=== PATIENT | female | born 1935 | race African-American/Black ===

== ENCOUNTER 2016-10-07 07:12 | Day surgery (SDC) | payer MEDICARE ==
[~2016-10-07] VITALS: Ht 154.9 cm; Wt 60.1 kg
[~2016-10-07 07:12] MED LIST: FLUO20CA38 PO; FURO20TA3 PO; HYDR-2059 PO; LAMO200T PO; LANS30CA PO; LEVO125T71 PO; LOSA100T7 PO; METO-448 PO; RANI300T3 PO; SOLI10TA5 PO; SUCR1TAB27 PO
[2016-10-07 07:50] VITALS: Ht 154.9 cm; Wt 60.1 kg
[2016-10-07 08:02] VITALS: BP 137/66; PULSE 55; RESP 27
[2016-10-07] MEDS ORDERED: LIDOCAINE 2% (SDV) 5 ML INJ ONE (08:07)
[2016-10-07] MEDS ORDERED: FENTAnyl 50 MCG/ML VIAL ONE (08:07)
[2016-10-07] MEDS ORDERED: PROPOFOL 20 ML ONE (08:07)
[2016-10-07 09:23] VITALS: BP 157/77; PULSE 54; RESP 24
--- NOTE | 2016-10-07 09:46 | GILP ---
DATE OF PROCEDURE: 10/07/2016 PROCEDURE: Esophagogastroduodenoscopy. PREOPERATIVE DIAGNOSIS: Patient presenting with history of difficulty in swallowing, history of vom iting for the past several weeks, rule out esophageal stricture, esophageal neoplasm, motility disor columb[place]. 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 A large hiatal hernia was noted in this area as well. Erosive gastritis of the fundus of the stomach noted. Minimal duodenitis noted. DESCRIPTION OF PROCEDURE: After informed written consent was obtained, the patient was asked to lie on the left lateral side. Intravenous anesthesia was given by anesthesiologist, Dr. Fair. When the patient became somnolent, the Olympus video upper endoscope was introduced into the oropharynx, then into the esophagus. At 28 cm from the incisor teeth, there is evidence of a stricture noted a nd this stricture represents the hiatal hernia the neck of it. Hiatal hernia was found to be at 12 cm long. The scope at this time was advanced into the stomach. A few erosions of this fundus of th e stomach were noted with no ulcers, no neoplasm. Biopsy was done from the antrum and the fundus to rule out H. pylori infection. Duodenum appeared normal up to the end of the third portion except m inimal duodenitis were noted in the bulb of the duodenum. At this time, endoscope was withdrawn. B iopsies were obtained from the esophageal strictured area and the procedure was terminated. PLAN: Recommend wait for the pathology report. Meanwhile, recommend Nexium 40 mg twice a day. Rec ommend Gaviscon 1 ounce 4 times a day and wait for the pathology report. Dictated By: DEYSI GROVES/RAMIN Conf#: [id number] DID#: [id number]
== END 2016-10-07 11:53 | disposition home or self-care (01) ==
LOC: GIL 07:12 → SUR 07:12
PROVIDERS: ATTEND Internal Medicine Gastroenterology
DX: K21.0 Gastro-esophageal reflux disease with esophagitis (principal); F32.9 Major depressive disorder, single episode, unspecified
CPT/HCPCS: 43239; 88305; 88312; 88313; J3010

== ENCOUNTER 2017-05-15 21:46 | Inpatient (IN) | payer MEDICARE, OTHER ==
[~2017-05-15] VITALS: Ht 160 cm; Wt 65.7 kg
--- NOTE | 2017-05-15 22:18 | ERD ---
ER Documentation Chief Complaint Chief Complaint BIB FAMILY C/O SOB X 2 DAYS. HPI The patient is a 82-year-old female, presenting to the ER because of acute on chronic shortness of breath, worse for the last 2 days. She has similar symptoms previously, she saw her physician Dr. Gallegos yesterday. She has not been using her CPAP for her sleep apnea because it was broken for the last 2 weeks. She complains of intermittent cough for 2 days, denies fever, nasal congestion, chest pain, abdominal pain, vomiting, dysuria, diarrhea. She does not smoke nor drink Past medical history: Anxiety, hypothyroidism, hypertension, sleep apnea, depression, chronic kidney disease Past surgical history: Appendectomy, hysterectomy ROS All systems reviewed and are negative except as per history of present illness. Medications Home Meds Active Scripts Losartan Potassium* (Losartan Potassium*) 100 Mg Tablet, 100 MG PO DAILY for hypertension for 30 Days, TAB 4 Refills Prov:RADHA GALLEGOS MD 11/16/15 Furosemide* (Furosemide*) 20 Mg Tablet, 20 MG PO DAILY for swelling for 30 Days , #60 TAB 3 Refills Prov:RADHA GALLEGOS MD 11/16/15 Sucralfate (Carafate) 1 Gm Tab, 1 GM PO QID for 30 Days, TAB Prov:RADHA GALLEGOS MD 08/23/15 Reported Medications Ibuprofen/Diphenhydramine Cit (Advil Pm Caplet) 1 Each Tablet, 1 EACH PO, TAB 05/16/17 Aspirin Ec (Aspir 81) 81 Mg Tablet., 81 MG PO DAILY, #30 TAB 05/16/17 Omeprazole* (Omeprazole*) 40 Mg Capsule., 40 MG PO DAILY, #30 CAP 05/16/17 Methadone Hcl* (Methadone*) 10 Mg Tab, 10 MG PO BID, TAB 05/16/17 Spironolactone* (Aldactone*) 25 Mg Tablet, 25 MG PO BID, #60 TAB 05/16/17 Levothyroxine Sodium* (Levothyroxine Sodium*) 100 Mcg Tablet, 100 MCG PO BEFORE BREAKFAST, #30 TAB 05/16/17 Hydrocodone Bit-Acetaminophen* (Hydrocodone-APAP*) 10-325 Tablet, PO Q4H Y for PAIN, TAB 04/09/15 Lamotrigine* (Lamotrigine*) 200 Mg Tablet, 200 MG PO DAILY, TAB 04/09/15 Solifenacin* (Vesicare*) 10 Mg Tablet, 10 MG PO DAILY, TAB 04/09/15 Ranitidine Hcl* (Zantac*) 300 Mg Tablet, 300 MG PO HS, TAB 04/09/15 Metoprolol Tartrate* (Lopressor*) 25 Mg Tab, 25 MG PO BID, TAB 04/09/15 Fluoxetine Hcl* (Prozac*) 20 Mg Capsule, 20 MG PO DAILY, CAP 04/09/15 Discontinued Reported Medications Lansoprazole* (Lansoprazole*) 30 Mg Capsule.dr, 30 MG PO DAILY, CAP 04/09/15 Levothyroxine Sodium* (Levoxyl*) 125 Mcg Tablet, 125 MCG PO AC BREAKFAST, TAB 04/09/15 Allergies Allergies: Coded Allergies: No Known Drug Allergies (Unverified Allergy, Unknown, 05/16/17) PMhx/Soc History of Surgery: Yes (appendectomy, knee/joint sx.,hysterectomy) Anesthesia Reaction: No Hx Neurological Disorder: No Hx Respiratory Disorders: Yes (sleep apnea, sob) Hx Cardiac Disorders: No (palpitations) Hx Psychiatric Problems: Yes (depression) Hx Miscellaneous Medical Probl: Yes (htn) Hx Alcohol Use: Yes Hx Substance Use: No Hx Tobacco Use: Yes Physical Exam Vitals Vital Signs Date Time Temp Pulse Resp B/P Pulse Ox O2 Delivery O2 Flow Rate FiO2 05/16/17 01:35 98.1 56 20 126/60 100 Room Air 05/16/17 01:12 98.0 60 16 123/66 99 Nasal Cannula 05/15/17 23:36 54 16 155/77 100 Nasal Cannula 2.0 05/15/17 23:36 Nasal Cannula 2.0 05/15/17 22:00 Nasal Cannula 2 05/15/17 21:51 97.7 78 20 197/92 99 Physical Exam Const: No acute distress.Very anxious Head: Atraumatic. Eyes: Normal Conjunctiva. ENT: Normal External Ears, Nose and Mouth. Neck: Full range of motion. No meningismus. Resp: Scattered rhonchi, no wheezes Cardio: Regular rate and rhythm. Abd: Soft, non distended, normal bowel sounds, non tender. Skin: No petechiae or rashes. Back: No midline or flank tenderness. Ext: No cyanosis, or edema. Neur: Awake and alert. No focal deficit Psych: Normal Mood and Affect. Result Diagram: 05/15/17230805/15/172308 Results 24 hrs Laboratory Tests Test 05/15/17 23:09 White Blood Count 7.010^3/ul Red Blood Count 3.5110^6/ul Hemoglobin 6.6g/dl Hematocrit 22.0% Mean Corpuscular Volume 62.7fl Mean Corpuscular Hemoglobin 18.8pg Mean Corpuscular Hemoglobin Concent 30.0g/dl Red Cell Distribution Width 19.8% Platelet Count 41279^3/UL Mean Platelet Volume 10.0fl Neutrophils % 77.7% Lymphocytes % 15.2% Monocytes % 6.4% Eosinophils % 0.1% Basophils % 0.3% Nucleated Red Blood Cells % 0.0/100WBC Neutrophils # 5.510^3/ul Lymphocytes # 1.110^3/ul Monocytes # 0.510^3/ul Eosinophils # 0.010^3/ul Basophils # 0.010^3/ul Nucleated Red Blood Cells # 0.010^3/ul Prothrombin Time 13.1Sec Prothrombin Time Ratio 1.0 INR International Normalized Ratio 0.99 Activated Partial Thromboplast Time Pending Sodium Level 139mmol/L Potassium Level 5.0mmol/L Chloride Level 105mmol/L Carbon Dioxide Level 25mmol/L Anion Gap 14 Blood Urea Nitrogen 29mg/dl Creatinine 1.50mg/dl Glucose Level 102mg/dl Calcium Level 10.0mg/dl Total Bilirubin 0.2mg/dl Direct Bilirubin 0.00mg/dl Indirect Bilirubin 0.2mg/dl Aspartate Amino Transf (AST/SGOT) 29IU/L Alanine Aminotransferase (ALT/SGPT) 25IU/L Alkaline Phosphatase 80IU/L Troponin I 0.021ng/ml B-Type Natriuretic Peptide 664PG/ML Total Protein 7.3g/dl Albumin 4.0g/dl Globulin 3.30g/dl Albumin/Globulin Ratio 1.21 Current Medications Medications (Trade) Dose Ordered Sig/Ebonie Route PRN Reason Start Time Stop Time Status Last Admin Dose Admin Alprazolam (Xanax) 0.25 mg ONCE ONCE PO 05/15/17 23:30 05/15/17 23:31 DC 05/15/17 23:32 Ondansetron HCl (Zofran Inj) 4 mg ONCE ONCE IV 05/15/17 23:23 05/15/17 23:28 DC 05/15/17 23:32 Procedures/MDM [place] [id number] Radiology Main Line: [phone] DIAGNOSTIC IMAGING REPORT Patient: KAYKAY MARCOS : 1935 Age: 82 Sex: F MR #: [id number] DOS: 05/15/17 2240 Ordering MD: JEANNIE LLAMAS MD Location: E/R Room/Bed: PROCEDURE: Portable chest x-ray. CLINICAL INDICATION: 82 years of age, female. Shortness of breath. TECHNIQUE: Portable AP view of the chest. COMPARISON: Chest x-ray August 20, 2015 and chest x-ray on chest CT April 09, 2015 FINDINGS: Atherosclerotic calcification and tortuosity of thoracic aorta. Enlarged cardiopericardial silhouette. There is a mass-like density projected over the inferior mediastinum corresponding to a hiatus hernia on CT that is similar to prior exams. Right hilar prominence is stable and likely vascular. Right paratracheal soft tissue prominence is also likely vascular and unchanged. Lungs are clear. Negative for pleural effusion or pneumothorax. Multilevel degenerative changes in the spine with a curvature of the upper lumbar spine convex right. Negative for an acute bony abnormality. Additional comment: None. IMPRESSION: Negative for evidence of an acute chest process. Tortuous aorta and cardiomegaly are unchanged from prior exams. Hiatus hernia is unchanged. RPTAT: HCTS Physician Natalee Date Time Electronically viewed and signed by Physician Natalee on 05/15/2017 23: 09 CS/ CC: JEANNIE LLAMAS MD EKG: Read by emergency physician Rate/Rhythm: Sinus bradycardia 58 beats/min QRS, ST, T-waves: No ST elevation, no T inversion Impression: Abnormal EKG MEDICAL MAKING DECISION: The patient is a 82-year-old female, presenting with acute dyspnea, most likely due to acute GI bleed, acute anxiety. She was treated with Xanax 0.25 mg p.o. for acute anxiety, Zofran 4 mg IV for nausea with good response. I have ordered to transfuse her 2 units of packed red blood cell due to acute anemia. The differential diagnoses for acute dyspnea considered include but are not limited to asthma, COPD, pneumonia, pulmonary embolus, pleural effusion, congestive heart failure. The differential diagnoses considered include but are not limited to gastritis, peptic ulcer disease, esophageal varices, Rebekah-Urban tear, carcinoma, polyp, hemorrhoid, fissure, diverticulosis, angiodysplasia. Departure Diagnosis: Primary Impression: Anemia Additional Impression: GI bleed Condition: Stable Comments I discussed the findings with the patient. I discussed the patient with her physician Dr. Verma who was made aware of the lab, the treatment, the patient condition. The patient is admitted to [facility] at 12:10 am Disclaimer: Inadvertent spelling and grammatical errors are likely due to EHR/ dictation software use and do not reflect on the overall quality of patient care. Also, please note that the electronic time recorded on this note does not necessarily reflect the actual time of the patient encounter. JEANNIE LLAMAS MD May 15, 2017 22:18
[2017-05-15 22:50] LABS: INR 0.99; PROTIME 13.1 Sec (12.2-14.2)
--- NOTE | 2017-05-15 23:09 | RADRPT ---
PROCEDURE: Portable chest x-ray. CLINICAL INDICATION: 82 years of age, female. Shortness of breath. TECHNIQUE: Portable AP view of the chest. COMPARISON: Chest x-ray August 20, 2015 and chest x-ray on chest CT April 09, 2015 FINDINGS: Atherosclerotic calcification and tortuosity of thoracic aorta. Enlarged cardiopericardial silhouett e. There is a mass-like density projected over the inferior mediastinum corresponding to a hiatus he rnia on CT that is similar to prior exams. Right hilar prominence is stable and likely vascular. Rig ht paratracheal soft tissue prominence is also likely vascular and unchanged. Lungs are clear. Negative for pleural effusion or pneumothorax. Multilevel degenerative changes in the spine with a curvature of the upper lumbar spine convex right . Negative for an acute bony abnormality. Additional comment: None. IMPRESSION: Negative for evidence of an acute chest process. Tortuous aorta and cardiomegaly are unchanged from prior exams. Hiatus hernia is unchanged. RPTAT: HCTS Physician Natalee Date Time Electronically viewed and signed by Physician Natalee on 05/15/2017 23:09 /
[2017-05-15 23:20] LABS: ABNORMAL IP MESSAGE 1; MEAN CORPUSCULAR HEMOGLOBIN 18.8 pg (29.0-33.0); MEAN CORPUSCULAR VOLUME 62.7 fl (82.0-101.0); PLATELET COUNT 290 10^3/UL (140-415); RED BLOOD COUNT 3.51 10^6/ul (4.20-5.40); RED CELL DISTRIBUTION WIDTH 19.8 % (11.5-14.5)
[2017-05-15] MEDS ORDERED: ONDANSETRON 4 MG INJ IV ONE (23:23)
[2017-05-15] MEDS ORDERED: ALPRAZOLAM 0.25 MG TAB PO ONE (23:30)
[2017-05-15 23:33] LABS: POSITIVE DIFF @See below
[2017-05-15 23:35] LABS: HEMOGLOBIN 6.6 g/dl (12.0-16.0)
[2017-05-15 23:39] LABS: ALBUMIN/GLOBULIN RATIO 1.21; BILIRUBIN,INDIRECT 0.2 mg/dl (0-1.1); BILIRUBIN,TOTAL 0.2 mg/dl (0.2-1.3); CREATININE 1.5 mg/dl (0.44-1.00); TOTAL PROTEIN 7.3 g/dl (6.1-8.1)
[2017-05-15 23:49] LABS: TROPONIN-I 0.021 ng/ml (0.00-0.12)
[2017-05-16] VITALS (16 sets, daily range): BP systolic 111–179; BP diastolic 52–85; PULSE 48–92; RESP 18–59; TEMP 98.1; Ht 160 cm; Wt 65.7 kg
[2017-05-16 00:54] LABS: BASOPHILS % 0.3 % (0.0-2.0); EOSINOPHILS % 0.1 % (0.0-7.0); LYMPHOCYTES # 1.1 10^3/ul (0.8-2.9); LYMPHOCYTES % 15.2 % (15.0-51.0); MONOCYTE # 0.5 10^3/ul (0.3-0.9); MONOCYTES % 6.4 % (0.0-11.0); NEUTROPHIL # 5.5 10^3/ul (1.6-7.5); NEUTROPHILS % 77.7 % (39.0-77.0)
[2017-05-16] MEDS ORDERED: OMEP40CA6 PO (01:04)
[2017-05-16] MEDS ORDERED: ASPI-535 PO (01:04)
[2017-05-16] MEDS ORDERED: METH10TA2 PO (01:04)
[2017-05-16] MEDS ORDERED: LEVO100T87 PO (01:04)
[2017-05-16] MEDS ORDERED: SPIR25TA PO (01:04)
[2017-05-16] MEDS ORDERED: IBUP1TAB13 PO (01:04)
[2017-05-16 02:30] LABS: PARTIAL THROMBOPLASTIN TIME 27.6 Sec (25.0-35.0)
[2017-05-16] MEDS: ZOLPIDEM 5 MG TAB PO PRN ×2 (04:05→23:33)
[2017-05-16] MEDS: CEPASTAT LOZENGE MT PRN ×2 (04:05→09:25)
[2017-05-16] MEDS ORDERED: HYDROCODONE/APAP (10/325) TAB PO PRN ×2 (10:00→15:00)
[2017-05-16 10:40] LABS: ABNORMAL IP MESSAGE 1; BASOPHILS % 0.5 % (0.0-2.0); EOSINOPHILS % 0.7 % (0.0-7.0); HEMATOCRIT 27.7 % (37.0-47.0); HEMOGLOBIN 8.5 g/dl (12.0-16.0); LYMPHOCYTES # 1.1 10^3/ul (0.8-2.9); LYMPHOCYTES % 18.8 % (15.0-51.0); MEAN CORPUSCULAR HEMOGLOBIN 21.3 pg (29.0-33.0); MEAN CORPUSCULAR HGB CONC 30.7 g/dl (32.0-37.0); MEAN CORPUSCULAR VOLUME 69.3 fl (82.0-101.0); MEAN PLATELET VOLUME 9.8 fl (7.4-10.4); MONOCYTE # 0.4 10^3/ul (0.3-0.9); MONOCYTES % 6.9 % (0.0-11.0); NEUTROPHIL # 4.4 10^3/ul (1.6-7.5); NEUTROPHILS % 72.9 % (39.0-77.0); PLATELET COUNT 257 10^3/UL (140-415); RED CELL DISTRIBUTION WIDTH 24.6 % (11.5-14.5); WHITE BLOOD COUNT 6.1 10^3/ul (4.8-10.8)
[2017-05-16 10:41] LABS: POSITIVE DIFF @See below
[2017-05-16 10:53] LABS: IRON 83 ug/dl (35-150)
[2017-05-16 11:02] LABS: TOTAL IRON BINDING CAPACITY 436 ug/dl (241-421)
[2017-05-16 11:10] LABS: CALCIUM 9.7 mg/dl (8.4-10.2); CREATININE 1.34 mg/dl (0.44-1.00)
[2017-05-16] MEDS: ONDANSETRON 4 MG INJ IV PRN (13:28)
[2017-05-16] MEDS ORDERED: NA PHOSPHATE/BIPHOS 133 ML ENEMA PR ONE (13:30)
[2017-05-16] MEDS ORDERED: MAGNESIUM CITRATE 300 ML BTL PO ONE (14:30)
--- NOTE | 2017-05-16 14:56 | HP ---
Date/Time of Note Date/Time of Note DATE: 05/16/17 TIME: 14:45 Assessment/Plan VTE Prophylaxis VTE Prophylaxis Intervention: other Lines/Catheters IV [facility]ter Type (from [facility]): Peripheral IV Urinary Cath still in place: No Assessment/Plan Problems: (1) Anemia Status: Acute Comment: She has rather significant anemia. Please note that her pulse baseline hemoglobin is between 9 and 10. She has been transfused and is on therapy for this. In addition it does not appear to be an acute GI bleed due to lack of bowel movements. She had previously been seen by Dr. Dumont and actually had a colonoscopy roughly 16 months ago and a endoscopy 7 months ago from the upper aspect. 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 He is combination of sucralfate with proton pump inhibitor therapy HPI/ROS Admit Date/Time Admit Date/Time May 16, 2017 at 00:11 Hx of Present Illness Charming -Russian female lives alone who has some family issues. She has been feeling tired and somewhat short of breath with exertion. She denies any melena or bright red blood per rectum and actually complained of constipation of at least 7 days duration. Please note she has a history of a hiatal hernia with recent erosive esophagitis and upper GI bleed roughly 16 months ago ROS Constitutional: no complaints (No fevers chills or sweats) Eyes: no complaints ENT: no complaints Respiratory: shortness of breath (On exertion) Cardiovascular: no complaints Gastrointestinal: no complaints (Very specifically denies any melena or bright red blood per rectum diarrhea nausea vomiting or pain) Genitourinary: no complaints Musculoskeletal: no complaints Skin: no complaints Neurologic: no complaints Endocrine: no complaints Psychological: anxiety, depression PMH/Family/Social Past Medical History Anemia chronic-thalassemia Medical History: diverticulitis, GERD (With history of hiatal hernia and severe erosive esophagitis with GI bleed in the past), hypertension, hypothyroid , renal disease, other (Nonobstructive coronary artery disease; left ventricular hypertrophy; major depressive disorder; anxiety disorder; lumbar disc disease with lumbar spinal stenosis; chronic pain syndrome; C-spine spondylolisthesis; thalassemia minor; history of B12 deficiency; obstructive sleep apnea) Past Surgical History Past Surgical Hx: other (Status post left total hip replacement; status post right total knee replacement; status post CATALINO with BSO) Family History Significant Family History: diabetes, hypertension, lung disease (Asthma) Social History Born in [facility] and raised there. 10th grade education without experience. She is retired [employer] worker. and lives alone. Some family social issues. Alcohol Use: rarely Smoking Status: Former smoker Drug Use: none Exam/Review of Systems Vital Signs Vitals Vital Signs Date Time Temp Pulse Resp B/P Pulse Ox O2 Delivery O2 Flow Rate FiO2 05/16/17 12:28 48 05/16/17 11:21 98.2 20 161/70 96 05/16/17 01:35 Room Air 05/15/17 23:36 2.0 Intake and Output 05/15/17 05/15/17 05/16/17 15:00 23:00 07:00 Intake Total 200 ml Balance 200 ml Exam Exam Charming and dignified -Russian female lying in bed Constitutional: alert, oriented, well developed Head: atraumatic, normocephalic Eyes: EOMI, nl conjunctiva, nl lids, nl sclera ENMT: mucosa pink and moist, nl external ears & nose, nl lips & teeth, nl nasal mucosa & septum Neck: non-tender, supple Respiratory: clear to auscultation, normal air movement Cardiovascular: nl pulses, regular rate and rhythm Gastrointestinal: nl liver, spleen, non-tender, soft Musculoskeletal: nl extremities to inspection, nl gait and stance Extremities: normal pulses Neurological: [employer] II-XII intact, nl mental status, nl speech, nl strength Labs Result Diagram: 05/16/17 0858 05/16/17 0857 Medications Medications Outpatient medications fluoxetine 20 mg daily diazepam 5 mg as needed [place] 103 25 4 times daily as needed lamotrigine 200 mg daily lansoprazole 30 mg once a day levothyroxine 125 mcg [place] [address] 0.5 once a day metoprolol 25 twice daily ranitidine 300 nightly Vesicare 10 mg daily. Current Medications Zolpidem Tartrate (Ambien) 5 mg HS PRN PO INSOMNIA Last administered on t 04:05; Admin Dose 5 MG; Start 05/16/17 at 03:30 Phenol (Cepastat Lozenge) 1 lozenge Q1H PRN MT sore throat Last administered on 05/16/17 09:25; Admin Dose 1 LOZENGE; Start 05/16/17 at 03:30 Acetaminophen/ Hydrocodone Bitart ([place] ()) 1 tab Q4H PRN PO PAIN; Start 05/16/17 at 10:00 Ondansetron HCl 4 mg 4 mg Q8H PRN IV NAUSEA AND/OR VOMITING Last administered on 05/16/17 13:28; Admin Dose 4 MG; Start 05/16/17 at 13:30 Ferric Sodium Gluconate Complex/ Sodium Chloride (Ferrlecit/NS) 110 ml @ 100 mls/hr ONCE ONCE IVPB ; Start 05/16/17 at 16:30; Stop 05/16/17 at 17:35 RADHA BATEMAN MD May 16, 2017 14:55
[2017-05-16] MEDS ORDERED: PANTOPRAZOLE (EC) 40 MG TAB PO ONE (15:00)
[2017-05-16] MEDS ORDERED: SOD FERRIC GLUC COMPLX 125 MG in SOD CHLORIDE 0.9% 100 ML IVPB ONE (16:30)
[2017-05-16] MEDS: SUCRALFATE 1 GM TAB PO SCH ×2 (17:07→21:21)
--- NOTE | 2017-05-16 19:59 | CONS ---
DATE OF ADMISSION: 05/16/2017 DATE OF CONSULTATION: 05/16/2017 TYPE OF CONSULTATION: Gastroenterology. Dear Dr. Gallegos, Thank you for asking me to see Ms. Massey in GI consultation. HISTORY OF PRESENT ILLNESS: The patient, as you know, is an 82-year-old -Algerian female. S he is admitted to the hospital because of history of dizziness. She has no history of vomiting bloo d or passing blood from the rectum. However, hemoglobin was 6.6 on admission yesterday, today is 8. 5. Upon questioning, she has no history of vomiting blood or passing blood from the rectum. She lucia s been on multiple medications at home, which includes losartan, Lopressor, Aldactone, aspirin, Proz ac, hydrocodone, Advil, lamotrigine, methadone, furosemide, omeprazole, ranitidine, Carafate, levoth yroxine, VESIcare. SOCIAL HISTORY: The patient does not smoke or drink. REVIEW OF SYSTEM: Please review the chart. PHYSICAL EXAMINATION: GENERAL: The patient is an 82-year-old female who at this time is alert. VITAL SIGNS: She is afebrile, blood pressure 165/64. CARDIOVASCULAR: Normal heart sounds. RESPIRATORY: Normal breath sounds. ABDOMEN: Showed unremarkable findings. LABORATORY WORKUP: Hemoglobin 6.6 went up to 8.5. Potassium 5.0, BUN 24, creatinine 1.34. CLINICAL IMPRESSION: The patient presenting with history of severe anemia. Gastrointestinal causes of anemia should be ruled out, although could be anemia of chronic disease. Peptic ulcer disease, arteriovenous malformation of the GI tract need to be ruled out. She did have a GI workup in the past. I need to review those charts. At this time is not available. Multiple medical problems, essentially as narrated by Dr. Gallegos. PLAN: At this time, recommend upper endoscopy as well as lower endoscopy. Continue PPI therapy and agree with transfusion. I would be happy to follow this patient along with you. Once again, doctor, thank you for this consultation. Dictated By: DEYSI GROVES/NTS Conf#: [id number] DID#: [id number] CC: RADHA GALLEGOS MD;*EndCC*
[2017-05-16] MEDS: LACTULOSE 30ML CUP PO SCH (21:17)
[2017-05-16] MEDS: METHADONE 5 MG TAB PO SCH (21:21)
[2017-05-16] MEDS: RANITIDINE 150 MG TAB PO SCH (21:21)
[2017-05-16] MEDS: METOPROLOL 25 MG TAB PO SCH (21:22)
[2017-05-17] VITALS (13 sets, daily range): BP systolic 143–177; BP diastolic 63–80; PULSE 39–60; RESP 19–20
[2017-05-17] MEDS: LACTULOSE 30ML CUP PO SCH ×6 (00:35→21:00)
[2017-05-17] MEDS: ONDANSETRON 4 MG INJ IV PRN ×3 (01:16→16:42)
[2017-05-17] MEDS: LEVOTHYROXINE 100 MCG TAB PO SCH (06:48)
[2017-05-17] MEDS: PANTOPRAZOLE (EC) 40 MG TAB PO SCH (06:48)
[2017-05-17 08:14] LABS: ABNORMAL IP MESSAGE 1; BASOPHILS % 0.3 % (0.0-2.0); EOSINOPHILS % 0.4 % (0.0-7.0); HEMATOCRIT 34.8 % (37.0-47.0); HEMOGLOBIN 10.6 g/dl (12.0-16.0); LYMPHOCYTES # 1.7 10^3/ul (0.8-2.9); LYMPHOCYTES % 18.1 % (15.0-51.0); MEAN CORPUSCULAR HEMOGLOBIN 21.4 pg (29.0-33.0); MEAN CORPUSCULAR HGB CONC 30.5 g/dl (32.0-37.0); MEAN CORPUSCULAR VOLUME 70.3 fl (82.0-101.0); MEAN PLATELET VOLUME 9.8 fl (7.4-10.4); MONOCYTE # 0.9 10^3/ul (0.3-0.9); NEUTROPHIL # 6.7 10^3/ul (1.6-7.5); PLATELET COUNT 285 10^3/UL (140-415); RED BLOOD COUNT 4.95 10^6/ul (4.20-5.40); RED CELL DISTRIBUTION WIDTH 24.2 % (11.5-14.5); WHITE BLOOD COUNT 9.4 10^3/ul (4.8-10.8)
[2017-05-17 08:18] LABS: POSITIVE DIFF @See below
[2017-05-17 08:46] LABS: CREATININE 1.26 mg/dl (0.44-1.00)
[2017-05-17] MEDS: METOPROLOL 25 MG TAB PO SCH ×2 (08:56→21:00)
[2017-05-17] MEDS: METHADONE 5 MG TAB PO SCH (08:57)
[2017-05-17] MEDS: SUCRALFATE 1 GM TAB PO SCH ×4 (08:57→21:02)
[2017-05-17] MEDS: FLUOXETINE 20 MG CAP PO SCH (08:57)
[2017-05-17] MEDS: LOSARTAN 50 MG TAB PO SCH (08:58)
[2017-05-17] MEDS: SOLIFENACIN 5 MG TAB PO SCH (08:59)
[2017-05-17] MEDS: LAMOTRIGINE 100 MG TAB PO SCH (08:59)
--- NOTE | 2017-05-17 12:13 | PN ---
Date/Time of Note Date/Time of Note DATE: 05/17/17 TIME: 12:10 Assessment/Plan VTE Prophylaxis VTE Prophylaxis Intervention: SCD's Lines/Catheters [facility] [place] Urinary Cath still in place: No Assessment/Plan Problems: (1) Chronic pain syndrome Status: Chronic Comment: Remains on narcotic therapy. Please note many times we have tried to adjust her regimen. We will continue trying to work with her. (2) Major depressive disorder Status: Chronic Comment: Remains on antidepressant therapy. Please note she has some issues revolving around interactions within the family and losses there of Qualifiers: Major depression recurrence: recurrent Active/Remission status: currently active Major depression episode severity: moderate Qualified Code: F33.1 - Moderate episode of recurrent major depressive disorder (3) Anemia Status: Acute Comment: Resolved. 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 (6) Nausea and vomiting Status: Acute Comment: This may be due to the opiate that were using as a long-acting opiate I will make adjustments Subjective 24 Hr Interval Summary Free Text/Dictation Patient reports nausea but otherwise feels well and no more shortness of breath. Her chronic pain does persist Constitutional: no complaints (No fevers chills or sweats) Respiratory: no complaints Cardiovascular: no complaints Gastrointestinal: nausea (Constipation is fully resolved but she does note some nausea.) Genitourinary: no complaints Musculoskeletal: back pain Neurologic: no complaints Psychological: anxiety, depression Exam/Review of Systems Vital Signs Vitals Vital Signs Date Time Temp Pulse Resp B/P Pulse Ox O2 Delivery O2 Flow Rate FiO2 05/17/17 12:08 97.7 50 20 176/80 98 05/16/17 01:35 Room Air 05/15/17 23:36 2.0 Intake and Output 05/16/17 05/16/17 05/17/17 14:59 22:59 06:59 Intake Total 500 ml 550 ml Output Total 100 ml Balance 500 ml 450 ml Exam Constitutional: alert, oriented Respiratory: clear to auscultation, normal air movement Cardiovascular: nl pulses, regular rate and rhythm Gastrointestinal: nl liver, spleen, non-tender, soft Results Result Diagram: 05/17/17 0705 05/17/17 0705 Results 24 hrs Laboratory Tests Test 05/16/17 17:30 05/17/17 06:46 05/17/17 07:05 Bedside Glucose 96 Lab Scanned Report BLOOD TRANSFUSION White Blood Count 9.4 # Red Blood Count 4.95 # Hemoglobin 10.6 #L Hematocrit 34.8 #L Mean Corpuscular Volume 70.3 L Mean Corpuscular Hemoglobin 21.4 L Mean Corpuscular Hemoglobin Concent 30.5 L Red Cell Distribution Width 24.2 H Platelet Count 285 Mean Platelet Volume 9.8 Neutrophils % 71.0 Lymphocytes % 18.1 Monocytes % 10.0 Eosinophils % 0.4 Basophils % 0.3 Nucleated Red Blood Cells % 0.0 Neutrophils # 6.7 Lymphocytes # 1.7 Monocytes # 0.9 Eosinophils # 0.0 Basophils # 0.0 Nucleated Red Blood Cells # 0.0 Sodium Level 140 Potassium Level 5.0 Chloride Level 104 Carbon Dioxide Level 27 Anion Gap 14 Blood Urea Nitrogen 17 Creatinine 1.26 H Glucose Level 113 Calcium Level 10.0 Medications Medications Current Medications Zolpidem Tartrate (Ambien) 5 mg HS PRN PO INSOMNIA Last administered on 23:33; Admin Dose 5 MG; Start 05/16/17 at 03:30 Phenol (Cepastat Lozenge) 1 lozenge Q1H PRN MT sore throat Last administered on 05/16/17 09:25; Admin Dose 1 LOZENGE; Start 05/16/17 at 03:30 Acetaminophen/ Hydrocodone Bitart ([place] (10/325)) 1 tab Q4H PRN PO PAIN; Start 05/16/17 at 10:00 Fluoxetine HCl (Prozac) 20 mg DAILY PO Last administered on 05/17/17 08:57; Admin Dose 20 MG; Start 05/17/17 at 09:00 Acetaminophen/ Hydrocodone Bitart ([place] (10/325)) 1 tab Q4H PRN PO PAIN; Start 05/16/17 at 15:00 Lamotrigine (Lamictal) 200 mg DAILY PO Last administered on 05/17/17 08:59; Admin Dose 200 MG; Start 05/17/17 at 09:00 Losartan Potassium (Cozaar) 100 mg DAILY PO Last administered on 05/17/17 08: 58; Admin Dose 100 MG; Start 05/17/17 at 09:00 Methadone HCl (Methadone) 10 mg BID PO Last administered on 05/17/17 08:57; Admin Dose 10 MG; Start 05/16/17 at 21:00 Metoprolol Tartrate (Lopressor) 25 mg BID PO Last administered on 05/16/17 21 :22; Admin Dose 25 MG; Start 05/16/17 at 21:00 Ranitidine HCl (Zantac) 300 mg HS PO Last administered on 05/16/17 21:21; Admin Dose 300 MG; Start 05/16/17 at 21:00 Solifenacin (Vesicare) 10 mg DAILY PO Last administered on 05/17/17 08:59; Admin Dose 10 MG; Start 05/17/17 at 09:00 Sucralfate (Carafate) 1 gm QID PO Last administered on 05/17/17 08:57; Admin Dose 1 GM; Start 05/16/17 at 17:00 Pantoprazole (Protonix Tab) 40 mg DAILY@06 PO Last administered on 05/17/17 06:48; Admin Dose 40 MG; Start 05/17/17 at 06:00 Clonidine (Catapres) 0.1 mg Q8 PRN PO ELEVATED BLOOD PRESSURE Last administered on 05/17/17 11:06; Admin Dose 0.1 MG; Start 05/16/17 at 18:00 Lactulose (Enulose) 30 gm Q4 PO Last administered on 05/16/17 21:17; Admin Dose 30 GM; Start 05/16/17 at 21:00 Clonidine (Catapres) 0.2 mg Q8 PRN PO ELEVATED BLOOD PRESSURE; Start 05/16/17 at 20:30 Ondansetron HCl (Zofran Inj) 4 mg Q6 PRN IV NAUSEA AND/OR VOMITING; Start at 12:00 RADHA BATEMAN MD May 17, 2017 12:13
[2017-05-17 13:24] LABS: CALCIUM 9.7 mg/dl (8.4-10.2); CREATININE 1.24 mg/dl (0.44-1.00); POTASSIUM 4.8 mmol/L (3.5-5.1)
[2017-05-17] MEDS ORDERED: NA PHOSPHATE/BIPHOS 133 ML ENEMA PR PRN (18:30)
[2017-05-17] MEDS ORDERED: PEG/ELECTROLYTES 4L BTL PO ONE (18:30)
[2017-05-17] MEDS ORDERED: BISACODYL 10 MG SUPP PR PRN (18:30)
[2017-05-17] MEDS: morphine (ER) 15 MG TAB PO SCH (21:03)
[2017-05-17] MEDS: RANITIDINE 150 MG TAB PO SCH (21:03)
[2017-05-18] VITALS (19 sets, daily range): BP systolic 96–208; BP diastolic 51–97; PULSE 49–108; RESP 16–27
[2017-05-18] MEDS: LACTULOSE 30ML CUP PO SCH ×3 (01:00→08:54)
[2017-05-18] MEDS: PANTOPRAZOLE (EC) 40 MG TAB PO SCH (06:00)
[2017-05-18] MEDS: LEVOTHYROXINE 100 MCG TAB PO SCH (06:10)
[2017-05-18] MEDS ORDERED: ESMOLOL 100 MG INJ ONE (07:00)
[2017-05-18] MEDS: LOSARTAN 50 MG TAB PO SCH (08:54)
[2017-05-18] MEDS: LAMOTRIGINE 100 MG TAB PO SCH (08:54)
[2017-05-18] MEDS: SUCRALFATE 1 GM TAB PO SCH (08:54)
[2017-05-18] MEDS: SOLIFENACIN 5 MG TAB PO SCH (08:55)
[2017-05-18] MEDS: morphine (ER) 15 MG TAB PO SCH (08:55)
[2017-05-18] MEDS: FLUOXETINE 20 MG CAP PO SCH (08:55)
[2017-05-18] MEDS: METOPROLOL 25 MG TAB PO SCH (08:55)
--- NOTE | 2017-05-18 09:41 | PN ---
Date/Time of Note Date/Time of Note DATE: 05/18/17 TIME: 09:38 Assessment/Plan VTE Prophylaxis VTE Prophylaxis Intervention: contraindicated Lines/Catheters IV [facility] Saline Lock Urinary Cath still in place: No Assessment/Plan Problems: (1) Spinal stenosis of lumbar region Status: Chronic Comment: She remains stable with this. Please note that she has been seen in the past by spinal surgery specimen specialist and has been determined at this time not to be an appropriate candidate for surgery. Qualifiers: Neurogenic claudication status: with neurogenic claudication Qualified Code : M48.062 - Spinal stenosis of lumbar region with neurogenic claudication (2) Major depressive disorder Status: Chronic Comment: She is on medical therapy for this. Qualifiers: Major depression recurrence: recurrent Active/Remission status: currently active Major depression episode severity: moderate Qualified Code: F33.1 - Moderate episode of recurrent major depressive disorder (3) Chronic pain syndrome Status: Chronic Comment: She is responding adequately to her long-acting medications to be used in conjunction with the short acting medications. Please note she seen multiple pain management specialists over time. (4) Anemia Status: Acute Comment: He has been transfused and resolved. Pending at this time are her endoscopies. Once those are completed she should be ready for discharge. 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 (6) Hiatal hernia Status: Chronic Comment: Noted. Subjective 24 Hr Interval Summary Free Text/Dictation Patient informs that she is feeling better today her nausea is resolved and her main complaint is that she is hungry. Constitutional: no complaints Respiratory: no complaints Cardiovascular: no complaints Gastrointestinal: no complaints Genitourinary: no complaints Exam/Review of Systems Vital Signs Vitals Vital Signs Date Time Temp Pulse Resp B/P Pulse Ox O2 Delivery O2 Flow Rate FiO2 05/18/17 08:12 49 05/18/17 08:00 98.0 16 155/74 97 05/17/17 20:00 Nasal Cannula 2.0 Intake and Output 05/17/17 05/17/17 05/18/17 15:00 23:00 07:00 Intake Total 400 ml Balance 400 ml Exam Constitutional: alert, oriented Neck: non-tender, supple Respiratory: clear to auscultation, normal air movement Cardiovascular: nl pulses, regular rate and rhythm Gastrointestinal: nl liver, spleen, non-tender, soft Results Result Diagram: 05/17/17 0705 05/17/17 1208 Results 24 hrs Laboratory Tests Test 05/17/17 12:08 05/18/17 06:03 Sodium Level 139 Potassium Level 4.8 Chloride Level 102 Carbon Dioxide Level 26 Anion Gap 16 Blood Urea Nitrogen 16 Creatinine 1.24 H Glucose Level 103 Calcium Level 9.7 Lab Scanned Report BLOOD TRANSFUSION Medications Medications Current Medications Zolpidem Tartrate (Ambien) 5 mg HS PRN PO INSOMNIA Last administered on 23:33; Admin Dose 5 MG; Start 05/16/17 at 03:30 Phenol (Cepastat Lozenge) 1 lozenge Q1H PRN [place] sore throat Last administered on 05/16/17 09:25; Admin Dose 1 LOZENGE; Start 05/16/17 at 03:30 Acetaminophen/ Hydrocodone Bitart ([place] (10/325)) 1 tab Q4H PRN PO PAIN; Start 05/16/17 at 10:00 Fluoxetine HCl (Prozac) 20 mg DAILY PO Last administered on 05/17/17 08:57; Admin Dose 20 MG; Start 05/17/17 at 09:00 Acetaminophen/ Hydrocodone Bitart ([place] (10/325)) 1 tab Q4H PRN PO PAIN; Start 05/16/17 at 15:00 Lamotrigine (Lamictal) 200 mg DAILY PO Last administered on 05/17/17 08:59; Admin Dose 200 MG; Start 05/17/17 at 09:00 Losartan Potassium (Cozaar) 100 mg DAILY PO Last administered on 05/17/17 08: 58; Admin Dose 100 MG; Start 05/17/17 at 09:00 Metoprolol Tartrate (Lopressor) 25 mg BID PO Last administered on 05/16/17 21 :22; Admin Dose 25 MG; Start 05/16/17 at 21:00 Ranitidine HCl (Zantac) 300 mg HS PO Last administered on 05/17/17 21:03; Admin Dose 300 MG; Start 05/16/17 at 21:00 Solifenacin (Vesicare) 10 mg DAILY PO Last administered on 05/17/17 08:59; Admin Dose 10 MG; Start 05/17/17 at 09:00 Sucralfate (Carafate) 1 gm QID PO Last administered on 05/17/17 21:02; Admin Dose 1 GM; Start 05/16/17 at 17:00 Pantoprazole (Protonix Tab) 40 mg DAILY@06 PO Last administered on 05/17/17 06:48; Admin Dose 40 MG; Start 05/17/17 at 06:00 Lactulose (Enulose) 30 gm Q4 PO Last administered on 05/17/17 16:42; Admin Dose 30 GM; Start 05/16/17 at 21:00 Ondansetron HCl (Zofran Inj) 4 mg Q6 PRN IV NAUSEA AND/OR VOMITING Last administered on 05/17/17 16:42; Admin Dose 4 MG; Start 05/17/17 at 12:00 Hydralazine HCl (Apresoline) 25 mg Q8H PRN PO ELEVATED BLOOD PRESSURE Last administered on 05/17/17 18:25; Admin Dose 25 MG; Start 05/17/17 at 12:30 Morphine Sulfate (Ms Contin (Er)) 30 mg BID PO Last administered on 05/17/17 21:03; Admin Dose 30 MG; Start 05/17/17 at 21:00 Bisacodyl (Dulcolax Supp) 10 mg DAILY PRN [place] CONSTIPATION; Start 05/17/17 at 18:30 Sodium Biphosphate/ Sodium Phosphate (Fleet Enema) 133 ml DAILY PRN [place] CONSTIPATION; Start 05/17/17 at 18:30 RADHA BATEMAN MD May 18, 2017 09:41
[2017-05-18] MEDS ORDERED: CEFOTAXIME 1 GM/50 ML (PMX) 50 ML IVPB SCH (10:30)
[2017-05-18] MEDS: ONDANSETRON 4 MG INJ IV PRN (10:31)
[2017-05-18] MEDS ORDERED: hydrALAzine 20 MG INJ ONE (11:56)
[2017-05-18] MEDS ORDERED: hydrALAzine 20 MG INJ IV ONE (12:00)
[2017-05-18] MEDS ORDERED: PROPOFOL 20 ML ONE (12:51)
[2017-05-18] MEDS ORDERED: LIDOCAINE 2% (SDV) 5 ML INJ ONE ×2 (12:51→12:53)
[2017-05-18] MEDS ORDERED: MIDAZOLAM 1 MG/ML 2 ML INJ ONE (12:56)
--- NOTE | 2017-05-18 13:41 | OPPN ---
Date/Time of Note Date/Time of Note DATE: 05/18/17 TIME: 13:36 Proc Note GI Procedure Date 05/18/17 Indication: diagnostic Pre-procedure Diagnosis severe anemia r/o gi causes pud avm neoplasm Post-procedure Diagnosis erosive esophagitis hiatal hernia diverticulosis hemorrhoids Procedure Performed: Endoscopy, Colonoscopy Surgeon see signature line Guest Experience Specialist none Anesthesia Type: MAC Tourniquet Time none EBL none Transfusion required none Biopsy 1: gastric and espophageal bx Grafts/Implants none Tubes/Drains none Complication(s) none Disposition: PACU Procedure Description under [facility] A [facility] egd and colonoscopy performed erosive esophagitis hiatal hernia noted diverticulosis hemorrhoids noted DEYSI VELEZ MD May 18, 2017 13:41
--- NOTE | 2017-05-18 15:20 | DS ---
Date/Time of Note Date/Time of Note DATE: 05/18/17 TIME: 15:17 Discharge Summary Admission/Discharge Info Admit Date/Time May 16, 2017 at 00:11 Discharge Date/Time May 18, 2017 Discharge Diagnosis Essential hypertension; hypothyroidism; major depressive disorder with anxiety; severe anemia; gastroesophageal reflux disease with erosive esophagitis; hemorrhoids: Diverticulosis coli; lumbar disc disease with lumbar spinal stenosis; hypertension; major depressive disorder; hypothyroidism Patient Condition: Good Consults Gastroenterology Procedures EGD and colonoscopy; transfusion Hx of Present Illness [place] -[place] female lives alone who has some family issues. She has been feeling tired and somewhat short of breath with exertion. She denies any melena or bright red blood per rectum and actually complained of constipation of at least 7 days duration. Please note she has a history of a hiatal hernia with recent erosive esophagitis and upper GI bleed roughly 16 months ago Hospital Course 82-year-old -[place] female admitted to the hospital with significant anemia. She was transfused with improvement. In addition to this her pain medications were adjusted. She underwent upper endoscopy and colonoscopy which were by and large revealing only of erosive esophagitis. She will now be discharged home in improved condition as compared to the time of admission. She has no known communicable diseases she is not a hazard to herself or others she has fair rehabilitation potential with major issue being her spinal stenosis. Home Meds Active Scripts Losartan Potassium* (Losartan Potassium*) 100 Mg Tablet, 100 MG PO DAILY for hypertension for 30 Days, TAB 4 Refills Prov:JAMAL GALLEGOS MD 11/16/15 Furosemide* (Furosemide*) 20 Mg Tablet, 20 MG PO DAILY for swelling for 30 Days , #60 TAB 3 Refills Prov:JAMAL GALLEGOS MD 11/16/15 Sucralfate (Carafate) 1 Gm Tab, 1 GM PO QID for 30 Days, TAB Prov:JAMAL GALLEGOS MD 08/23/15 Reported Medications Ibuprofen/Diphenhydramine Cit (Advil Pm Caplet) 1 Each Tablet, 1 EACH PO, TAB 05/16/17 Aspirin Ec (Aspir 81) 81 Mg Tablet., 81 MG PO DAILY, #30 TAB 05/16/17 Omeprazole* (Omeprazole*) 40 Mg Capsule., 40 MG PO DAILY, #30 CAP 05/16/17 Methadone Hcl* (Methadone*) 10 Mg Tab, 10 MG PO BID, TAB 05/16/17 Spironolactone* (Aldactone*) 25 Mg Tablet, 25 MG PO BID, #60 TAB 05/16/17 Levothyroxine Sodium* (Levothyroxine Sodium*) 100 Mcg Tablet, 100 MCG PO BEFORE BREAKFAST, #30 TAB 05/16/17 Hydrocodone Bit-Acetaminophen* (Hydrocodone-APAP*) 10-325 Tablet, PO Q4H Y for PAIN, TAB 04/09/15 Lamotrigine* (Lamotrigine*) 200 Mg Tablet, 200 MG PO DAILY, TAB 04/09/15 Solifenacin* (Vesicare*) 10 Mg Tablet, 10 MG PO DAILY, TAB 04/09/15 Ranitidine Hcl* (Zantac*) 300 Mg Tablet, 300 MG PO HS, TAB 04/09/15 Metoprolol Tartrate* (Lopressor*) 25 Mg Tab, 25 MG PO BID, TAB 04/09/15 Fluoxetine Hcl* (Prozac*) 20 Mg Capsule, 20 MG PO DAILY, CAP 04/09/15 Discontinued Reported Medications Lansoprazole* (Lansoprazole*) 30 Mg Capsule.dr, 30 MG PO DAILY, CAP 04/09/15 Levothyroxine Sodium* (Levoxyl*) 125 Mcg Tablet, 125 MCG PO AC BREAKFAST, TAB 04/09/15 Follow-up Plan Dr. Gallegos's office in 2 weeks Primary Care Provider Jamal Gallegos MD Time spent on discharge: > 30 minutes Pending Labs Laboratory Tests Test 05/18/17 06:03 Lab Scanned Report BLOOD [id number] JAMAL GALLEGOS MD May 18, 2017 15:20
--- NOTE | 2017-05-18 15:21 | PDOCDIS ---
Discharge Instructions DIAGNOSIS Discharge Diagnosis Essential hypertension; hypothyroidism; major depressive disorder with anxiety; severe anemia; gastroesophageal reflux disease with erosive esophagitis; hemorrhoids: Diverticulosis coli; lumbar disc disease with lumbar spinal stenosis; hypertension; major depressive disorder; hypothyroidism CONDITION Patient Condition: Good HOME CARE INSTRUCTIONS: Diet Instructions: Regular ACTIVITY: Activity Restrictions: Slowly Increase Activity Do not operate Machinery Do not operate Power Tool FOLLOW UP/APPOINTMENTS Follow-up Plan Dr. Gallegos's office in 2 weeks RADHA GALLEGOS MD May 18, 2017 15:20
--- NOTE | 2017-05-18 16:41 | GILP ---
DATE OF PROCEDURE: NAME OF PROCEDURE: Colonoscopy up to cecum. PREOPERATIVE DIAGNOSIS: Patient presenting with history of severe anemia, rule out colorectal neopl asm, arteriovenous malformation, diverticulosis and hemorrhoids. POSTOPERATIVE DIAGNOSES: 1. Moderate degree of diverticulosis all along the colon. 2. Moderate degree of internal and external hemorrhoids. In fact, internal hemorrhoids appeared to be rather severe hemorrhoids. DESCRIPTION OF PROCEDURE: After informed written consent was obtained, the patient was asked to lie on the left lateral side. Intravenous anesthesia was given by anesthesiologist, Dr. Fair. Whe n the patient became somnolent, the Olympus video colonoscope was introduced into the rectum and sco pe was advanced all the way to the cecum. Moderate degree of diverticulosis noted all along the col on. No AVM, no neoplasm noted. On the way out, retroflexion was performed. Severe degree of inter nal hemorrhoids noted and also moderate to severe degree of external hemorrhoids were noted, and at this time, procedure was terminated. PLAN: Recommend Anusol-HC suppositories 1 into the rectum twice a day for 10 days. Dictated By: DEYSI VELEZ MD NC/NTS Conf#: [id number] DID#: [id number] CC: MARQUIS JOHN MD; RADHA BATEMAN MD;*[facility]*
--- NOTE | 2017-05-18 16:43 | GILP ---
DATE OF PROCEDURE: PROCEDURE: Esophagogastroduodenoscopy. PREOPERATIVE DIAGNOSIS: Patient presenting with history of very severe anemia with hemoglobin 6.6 g isac, rule out peptic ulcer disease, gastritis, esophagitis. POSTOPERATIVE DIAGNOSES: 1. Moderate to severe degree of esophagitis. 2. Large hiatal hernia. 3. Diffuse gastritis. DESCRIPTION OF PROCEDURE: After informed written consent was obtained, the patient was asked to lie on the left lateral side. Intravenous anesthesia was given by anesthesiologist, Dr. Fair. Whe n the patient became somnolent, the Olympus video upper endoscope was introduced into the oropharynx , then into the esophagus. Multiple erosions, multiple superficial ulcers were noted in the lower h longterm of the esophagus. Large hiatal hernia was noted. Endoscope at this time was advanced into the stomach. Stomach showed diffuse linear areas of erythema with friability noted. No ulcers, no neop lasm noted. Duodenum was examined up to the end of the third portion, which appeared normal. Endos cope at this time was withdrawn. Biopsies of the stomach was obtained to rule out H. pylori infecti on from the antrum, the lesser curvature and the fundus. Multiple random biopsies were obtained fro m the esophagus to rule out eosinophilic esophagitis, reflux esophagitis, opportunistic infections, etc. Procedure at this time was terminated. PLAN: Recommend proton pump inhibitor therapy, Protonix 40 mg twice a day for about 2 weeks and the n once a day. Dictated By: DEYSI VELEZ MD NC/NTS Conf#: [id number] DID#: [id number] CC: RADHA BATEMNA MD;*[facility]*
[2017-05-18] MEDS ORDERED: HYDROCORTISONE 25 MG SUPP PR SCH (21:00)
--- NOTE | 2017-05-19 07:12 | PN ---
DATE: 05/17/2017 SUBJECTIVE: The patient is admitted with dizziness and the severe anemia with hemoglobin 6.6. She got transfused, now up to 10.6. No further dizziness at this time. Because of the severe anemia, I was consulted. She has no active bleeding. PHYSICAL EXAMINATION: GENERAL: The patient is alert. She is not in distress. VITAL SIGNS: Temperature 98.8, blood pressure is 147/68. CARDIOVASCULAR: Normal heart sounds. RESPIRATORY: Normal breath sounds. ABDOMEN: Unremarkable. LABORATORY WORKUP: Hemoglobin 10.6 as I mentioned, potassium 5.0. CLINICAL IMPRESSION: Severe anemia, rule out gastrointestinal causes of anemia, peptic ulcer diseas e, arteriovenous malformation, neoplasm, etcetera. PLAN: At this time, will proceed with the EGD and colonoscopy tomorrow. Dictated By: DEYSI GROVES/RAMIN Conf#: [id number] DID#: [id number] CC: MARQUIS JOHN MD;*[facility]*
== END 2017-05-18 16:10 | disposition home or self-care (01) | DRG 812 ==
LOC: E/R 21:46 → TEL 05-16 00:11
PROVIDERS: ADMIT Internal Medicine; ATTEND Internal Medicine
PROC: 0DJD8ZZ Inspection of Lower Intestinal Tract, Via Natural or Artificial Opening Endoscopic (ICD-10-PCS; principal; 2017-05-18 13:00)
PROC: 0DB58ZX Excision of Esophagus, Via Natural or Artificial Opening Endoscopic, Diagnostic (ICD-10-PCS; 2017-05-18 13:00)
DX: D50.0 Iron deficiency anemia secondary to blood loss (chronic) (principal); N17.9 Acute kidney failure, unspecified; K20.9 Esophagitis, unspecified; K64.8 Other hemorrhoids; K57.30 Diverticulosis of large intestine without perforation or abscess without bleeding; K64.4 Residual hemorrhoidal skin tags; K44.9 Diaphragmatic hernia without obstruction or gangrene; K29.70 Gastritis, unspecified, without bleeding
CPT/HCPCS: 36415; 36430; 71010; 80048; 80053; 82607; 82962; 83540; 83880; 84484; 85025; 85610; 85730; 86850; 86900; 86901; 86920; 87070; 88305; 88312; 88313; 93005; 96374; J0360; J0698; J2250; J2405; J2916; P9016

== ENCOUNTER → 2017-09-05 | Emergency (ER) | END | disposition left against medical advice (07) ==

== ENCOUNTER 2017-09-29 13:32 | Inpatient (IN) | END 2017-10-02 18:13 | disposition home or self-care (01) | DRG 683 ==

== ENCOUNTER → 2017-10-27 | Outpatient (CLI) | END | disposition home or self-care (01) ==